=== PATIENT | female | born 1950 | race Caucasian/White ===

== ENCOUNTER 2018-01-16 11:59 | Day surgery (SDC) | payer MEDICARE, BC, OTHER ==
[~2018-01-16] VITALS: Ht 157.5 cm; Wt 89.8 kg
[~2018-01-16 11:59] MED LIST: ASPI81CH PO; CHOL10002 PO; FISH OIL 1,0001 EAC1 PO; Glucosamine Ch1 EAC4 PO; JANUMET XR 50-1 EAC1 PO; LEVSOD100 PO; LORA1SY PO; OLMESARTAN-HCT1 EAC1 PO; RALO60 PO; ROSU5 PO; Tylenol325 MG PO
[2018-01-17 04:36] LABS: BASOPHILS ABSOLUTE AUTO 0.05 K/mm3 (0.00-0.23); BASOPHILS PERCENT AUTO 1 % (0-2); EOSINOPHILS ABSOLUTE AUTO 0.74 K/mm3 (0.00-0.68); EOSINOPHILS PERCENT AUTO 8 % (0-6); Hematocrit 31.7 % (33.0-51.0); Hemoglobin 10.4 g/dL (11.5-16.0); IMMATURE GRAN ABSOLUTE AUTO 0.03 K/mm3 (0.00-0.10); IMMATURE GRAN PERCENT AUTO 0 % (0-1); LYMPHOCYTES ABSOLUTE AUTO 1.46 K/mm3 (0.84-5.20); LYMPHOCYTES PERCENT AUTO 16 % (21-46); MONOCYTES ABSOLUTE AUTO 0.67 K/mm3 (0.16-1.47); MONOCYTES PERCENT AUTO 7 % (4-13); Mean Corpuscular HGB 29.5 pg (26.0-34.0); Mean Corpuscular HGB Conc 32.8 g/dL (31.5-36.5); Mean Corpuscular Volume 90 fL (80-100); Mean Platelet Volume 9.6 fL (9.1-12.4); NEUTROPHILS PERCENT AUTO 67 % (41-73); Platelet Count 181 K/mm3 (150-400); RDW Coefficient Variation 13.7 % (11.7-14.2); RDW Standard Deviation 44.5 fL (35.1-46.3); Red Blood Cell Count 3.52 M/mm3 (3.80-5.20); White Blood Cell Count 9.05 K/mm3 (4.00-11.30)
[2018-01-17 04:53] LABS: Bun/Creatinine Ratio 16.9 (12.0-20.0); Calcium, Blood 8.4 mg/dL (8.5-10.1); Creatinine, Blood 1.36 mg/dL (0.40-1.00); Magnesium, Blood 1.8 mg/dL (1.6-2.4); Potassium, Blood 3.3 mmol/L (3.5-5.5)
[2018-01-17] MEDS ORDERED: ENOX40I SC (15:28)
[2018-01-17] MEDS ORDERED: Percocet 5-3251 EACH PO (15:30)
[2018-01-17] MEDS ORDERED: PROM25 PO (15:31)
== END 2018-01-17 16:13 | disposition home or self-care (01) ==
LOC: SURS 11:59 → PRE IP 11:59 → ORSCMMR 11:59 → SURS 11:59 → EDSTATUS 15:00 → PRE IP 15:00 → SURS 16:42 → ORSCMMR 01-17 16:13 → SURS 01-17 16:13
PROVIDERS: Orthopaedic Surgery
PROC: 0SRD0J9 Replacement of Left Knee Joint with Synthetic Substitute, Cemented, Open Approach (ICD-10-PCS; principal; 2018-01-16 15:00)
DX: M17.12 Unilateral primary osteoarthritis, left knee (principal); E11.9 Type 2 diabetes mellitus without complications; I10 Essential (primary) hypertension; E78.00 Pure hypercholesterolemia, unspecified; E66.01 Morbid (severe) obesity due to excess calories; Z68.37 Body mass index [BMI] 37.0-37.9, adult; Z79.899 Other long term (current) drug therapy; Z79.82 Long term (current) use of aspirin
CPT/HCPCS: 36415; 73560-LT; 80048; 82947; 83735; 85025; 86850; 86900; 86901; 88300; 97110; 97116; 97161; 97530; A9270; C1713; C1776; G8978; G8979; J0171; J0690; J0735; J1650; J1885; J2250; J2405; J2795; J3010; J7120

== ENCOUNTER → 2018-02-18 | Outpatient (CLI) | payer MEDICARE, OTHER ==
[~2018-02-18] MED LIST changes: +ENOX40I SC; +PROM25 PO; +Percocet 5-3251 EACH PO
== END | disposition home or self-care (01) ==
LOC: LAB SHORT 08:48 → PLD 08:48
DX: D22.71 Melanocytic nevi of right lower limb, including hip (principal)
CPT/HCPCS: 88305

== ENCOUNTER → 2018-07-23 | Outpatient (CLI) | payer MEDICARE, BC, OTHER | END | disposition home or self-care (01) | LOC: PLD 15:07 → LAB SHORT 15:07 | DX: D48.5 Neoplasm of uncertain behavior of skin (principal) | CPT/HCPCS: 88305 ==

== ENCOUNTER → 2019-01-15 | Outpatient (CLI) | payer MEDICARE, OTHER | END | disposition home or self-care (01) | LOC: LAB SHORT 08:31 → PLD 08:31 | DX: D22.72 Melanocytic nevi of left lower limb, including hip (principal) | CPT/HCPCS: 88305 ==

== ENCOUNTER → 2019-08-25 | Outpatient (CLI) | payer MEDICARE, OTHER | END | disposition home or self-care (01) | LOC: PLD 08:37 → LAB SHORT 08:37 | DX: D22.61 Melanocytic nevi of right upper limb, including shoulder (principal) | CPT/HCPCS: 88305 ==

== ENCOUNTER → 2019-12-26 | Outpatient (CLI) | payer MEDICARE, OTHER | END | disposition home or self-care (01) | LOC: LAB SHORT 16:05 → LAB EV 16:05 | DX: R59.0 Localized enlarged lymph nodes (principal) | CPT/HCPCS: 87070; 87077; 87147; 87186; 87205 ==

== ENCOUNTER → 2020-02-24 | Outpatient (CLI) | payer MEDICARE, OTHER | LOC: PLD 09:32 → LAB SHORT 09:32 | DX: D22.61 Melanocytic nevi of right upper limb, including shoulder (principal) | CPT/HCPCS: 88305 ==

== ENCOUNTER 2020-09-28 08:21 | Day surgery (SDC) | payer MEDICARE, OTHER ==
[~2020-09-28] VITALS: Ht 157.5 cm; Wt 92.3 kg
[2020-09-28] MEDS ORDERED: OLMESARTAN MEDO40 MG (09:04)
== END 2020-09-28 11:20 | disposition home or self-care (01) ==
LOC: ORSCSDS 08:21
PROVIDERS: Surgery
PROC: 0DBH8ZX Excision of Cecum, Via Natural or Artificial Opening Endoscopic, Diagnostic (ICD-10-PCS; principal; 2020-09-28 09:45)
PROC: 0DBM8ZX Excision of Descending Colon, Via Natural or Artificial Opening Endoscopic, Diagnostic (ICD-10-PCS; principal; 2020-09-28 09:45)
DX: Z12.11 Encounter for screening for malignant neoplasm of colon (principal); D12.4 Benign neoplasm of descending colon; D12.0 Benign neoplasm of cecum; I10 Essential (primary) hypertension; E11.9 Type 2 diabetes mellitus without complications; E03.9 Hypothyroidism, unspecified; K75.81 Nonalcoholic steatohepatitis (NASH); Z79.899 Other long term (current) drug therapy; Z79.82 Long term (current) use of aspirin; Z85.3 Personal history of malignant neoplasm of breast
CPT/HCPCS: 82947; 88305; J2704; J7120

== ENCOUNTER → 2021-02-22 | Outpatient (CLI) | payer MEDICARE, OTHER ==
[~2021-02-22] MED LIST changes: +OLMESARTAN MEDO40 MG
== END | disposition home or self-care (01) ==
LOC: PLD 08:50 → LAB SHORT 08:50
DX: D18.01 Hemangioma of skin and subcutaneous tissue (principal)
CPT/HCPCS: 88305

== ENCOUNTER → 2021-07-23 | Outpatient (CLI) | payer MEDICARE, OTHER | END | disposition home or self-care (01) | LOC: LAB SHORT 09:00 | DX: R30.0 Dysuria (principal) | CPT/HCPCS: 87086 ==

== ENCOUNTER → 2021-10-12 | Outpatient (CLI) | payer MEDICARE, OTHER | END | disposition home or self-care (01) | LOC: LAB SHORT 19:02 | DX: R31.9 Hematuria, unspecified (principal) | CPT/HCPCS: 87086 ==

== ENCOUNTER → 2021-10-15 | Outpatient (CLI) | payer MEDICARE, OTHER | END | disposition home or self-care (01) | LOC: LAB 11:31 → LAB SHORT 11:31 | DX: N17.9 Acute kidney failure, unspecified (principal); R89.4 Abnormal immunological findings in specimens from other organs, systems and tissues | CPT/HCPCS: 81050 ==

== ENCOUNTER 2022-02-12 15:43 | Emergency (ER) | payer MEDICARE, OTHER ==
[~2022-02-12] VITALS: Ht 162.6 cm; Wt 90.7 kg
[2022-02-12 16:58] LABS: Source, Urine Clean Catch
[2022-02-12 17:01] LABS: Calcium, Blood 9.9 mg/dL (8.5-10.1); Creatinine, Blood 1.22 mg/dL (0.40-1.00)
[2022-02-12 17:03] LABS: Bilirubin, Urine Neg (Neg); Blood, Urine 5+ (Neg); Glucose Qualitative, Urine Neg (Neg); Ketones, Urine Neg (Neg); Leukocyte Esterase, Urine 2+ (Neg); Nitrite, Urine Neg (Neg); Protein, Urine 3+ (Neg); Urobilinogen, Urine NORM (Normal)
[2022-02-12 17:21] LABS: Color, Urine Amber (P-Yellow)
[2022-02-12 17:23] LABS: Appearance, Urine Hazy (Clear); Red Blood Cells, Urine 50-100 /hpf (0-2)
[2022-02-12 17:25] LABS: Bacteria Many /hpf; Squamous Epithelial Cells Rare /hpf (Few)
[2022-02-12 18:42] LABS: BASOPHILS ABSOLUTE AUTO 0.08 K/mm3 (0.00-0.23); BASOPHILS PERCENT AUTO 1 % (0-2); EOSINOPHILS ABSOLUTE AUTO 0.28 K/mm3 (0.00-0.68); EOSINOPHILS PERCENT AUTO 3 % (0-6); Hematocrit 43.1 % (33.0-51.0); Hemoglobin 14.5 g/dL (11.5-16.0); IMMATURE GRAN ABSOLUTE AUTO 0.02 K/mm3 (0.00-0.10); IMMATURE GRAN PERCENT AUTO 0 % (0-1); LYMPHOCYTES ABSOLUTE AUTO 3.03 K/mm3 (0.84-5.20); LYMPHOCYTES PERCENT AUTO 29 % (21-46); MONOCYTES ABSOLUTE AUTO 0.83 K/mm3 (0.16-1.47); MONOCYTES PERCENT AUTO 8 % (4-13); Mean Corpuscular HGB 29.5 pg (26.0-34.0); Mean Corpuscular HGB Conc 33.6 g/dL (31.5-36.5); Mean Corpuscular Volume 88 fL (80-100); NEUTROPHILS ABSOLUTE AUTO 6.39 K/mm3 (1.96-9.15); NEUTROPHILS PERCENT AUTO 60 % (41-73); Platelet Count 261 K/mm3 (150-400); RDW Coefficient Variation 12.9 % (11.7-14.2); RDW Standard Deviation 41.8 fL (35.1-46.3); Red Blood Cell Count 4.92 M/mm3 (3.80-5.20); White Blood Cell Count 10.63 K/mm3 (4.00-11.30)
== END 2022-02-12 19:37 | disposition home or self-care (01) ==
LOC: ER 15:43
PROVIDERS: Emergency Medicine; Physician Assistant
DX: I12.9 Hypertensive chronic kidney disease with stage 1 through stage 4 chronic kidney disease, or unspecified chronic kidney disease (principal); N18.30 Chronic kidney disease, stage 3 unspecified; E11.22 Type 2 diabetes mellitus with diabetic chronic kidney disease; N28.1 Cyst of kidney, acquired; Z91.041 Radiographic dye allergy status; Z88.8 Allergy status to other drugs, medicaments and biological substances; Z88.1 Allergy status to other antibiotic agents; Z79.899 Other long term (current) drug therapy; Z79.82 Long term (current) use of aspirin; Z85.3 Personal history of malignant neoplasm of breast; E78.00 Pure hypercholesterolemia, unspecified
CPT/HCPCS: 36415; 80048; 81001; 85025; 87086; 99283

== ENCOUNTER → 2022-09-25 | Outpatient (CLI) | payer MEDICARE, OTHER | LOC: LAB 13:29 → LAB SHORT 13:29 | DX: L01.01 Non-bullous impetigo (principal); L81.4 Other melanin hyperpigmentation; L82.1 Other seborrheic keratosis; D22.5 Melanocytic nevi of trunk; Z08 Encounter for follow-up examination after completed treatment for malignant neoplasm; Z85.850 Personal history of malignant neoplasm of thyroid; B37.2 Candidiasis of skin and nail | CPT/HCPCS: 87070; 87205 ==